=== PATIENT | male | born 1955 | race Caucasian/White ===

== ENCOUNTER 2023-09-13 12:41 | Emergency (ER) | payer MEDICARE, OTHER ==
[~2023-09-13] VITALS: Ht 188 cm; Wt 106.6 kg
[~2023-09-13 12:41] MED LIST: CELEBREX100 MG PO; LISINOPRIL10 MG PO; METFORMIN HCL500 MG PO; NEURONTIN300 MG; VITAMIN D1000 UNI1 PO; ZYRTEC10 M3
[2023-09-13 12:57] VITALS: O2SAT 98
[2023-09-13] MEDS ORDERED: TETANUS/DIPHTHERIA TOX ADULT 0.5 ML SYR IM ONE (13:00)
== END 2023-09-13 13:28 | disposition home or self-care (01) ==
LOC: ER 12:44
DX: S61.215A Laceration without foreign body of left ring finger without damage to nail, initial encounter (principal); W26.0XXA Contact with knife, initial encounter; Y92.89 Other specified places as the place of occurrence of the external cause; I48.91 Unspecified atrial fibrillation; D64.9 Anemia, unspecified; Z87.19 Personal history of other diseases of the digestive system
CPT/HCPCS: 90471; 90714; 99283; 99284